=== PATIENT | female | born 1985 | race Two or more races ===

== ENCOUNTER 2023-07-31 10:00 | Day surgery (SDC) | payer OTHER ==
[2023-07-07 11:39] LABS: PH,URINE 7.5 (5.0-8.0); URINE APPEARANCE Clear; URINE BILIRRUBIN Negative (NEGATIVE); URINE BLOOD Negative; URINE COLOR Yellow; URINE GLUCOSE Negative (NEGATIVE); URINE LEUKOCYTE Negative; URINE NITRATE Negative; URINE PROTEIN Negative (NEGATIVE); URINE UROBILINOGEN 0.2 E.U./dl
[2023-07-07 11:42] LABS: HEMATOCRIT 26.9 % (36.0-45.00); PLATELET COUNT 362 K/uL (150-450); RED BLOOD COUNT 4.09 M/uL (4.00-6.00); RED CELL DISTRIBUTION WIDTH 16.6 % (11.5-14.5)
[2023-07-07 11:43] LABS: URINE BACTERIA 264.5 uL (0.0-1933); URINE RBC 3.3 uL (0.0-20.8); URINE WBC 5.2 uL (0.0-23.2)
[2023-07-07 11:43] LABS: HEMOGLOBIN 8.3 g/dL (12.0-15.00); MEAN CELL VOLUME 65.8 fL (80.00-100.00); MEAN CORPUSCULAR HEMOGLOBIN 20.2 pg (27.00-32.0)
[2023-07-07 11:57] LABS: INR 0.96; PARTIAL THROMBOPLASTIN TIME 24.8 SECONDS (22.0-34.0); PROTHROMBIN TIME 10.1 SECONDS (9.0-11.5)
[2023-07-07 12:17] LABS: ALBUMIN 3.5 gm/dL (3.4-5.0); BILIRUBIN TOTAL 0.23 mg/dL (0.3-1.2); CALCIUM 8.5 mg/dL (8.5-10.1); CREATININE SERUM 0.68 mg/dL (0.55-1.02); GFR 96.83; GLOBULINA 3.5 G/DL (2.4-3.5); POTASSIUM 4.18 mEq/L (3.5-5.1); TSH 1.94 uIU/mL (0.358-3.74)
[2023-07-31] MEDS ORDERED: MORGIDOX100 MG PO (15:08)
[2023-07-31] MEDS ORDERED: NAPR500T14 PO (15:08)
== END 2023-07-31 15:45 | disposition home or self-care (01) ==
LOC: CIR.AMB 10:00
PROVIDERS: ATTEND Obstetrics & Gynecology
DX: N84.0 Polyp of corpus uteri (principal); D25.0 Submucous leiomyoma of uterus; Z20.822 Contact with and (suspected) exposure to COVID-19